=== PATIENT | male | born 1980 | race Caucasian/White ===

== ENCOUNTER 2021-01-15 19:27 | Emergency (ER) | payer OTHER ==
[~2021-01-15 19:27] MED LIST: IBUPROFEN600 MG PO
[2021-01-15] MEDS ORDERED: NAPROSYN500 MG PO (22:57)
[2021-01-15] MEDS ORDERED: AUGMENTIN 875-1 EACH PO (22:57)
[2021-01-15] MEDS ORDERED: CYCLOBENZAPRINE10 MG PO (22:57)
[2021-04-06] MEDS ORDERED: LEVOTHYROXINE125 MC1 PO (12:06)
[2021-04-06] MEDS ORDERED: DICLOFENAC GEL 1% TOP (12:07)
[2021-04-06] MEDS ORDERED: HYDROCODONE-AC1 EACH PO (12:07)
[2021-04-06] MEDS ORDERED: PROTONIX20 MG PO (12:08)
[2021-04-06] MEDS ORDERED: VITAMIN D21250 MCG PO (12:08)
[2021-04-06] MEDS ORDERED: CARAFATE1 GM PO (12:08)
[2021-04-06] MEDS ORDERED: HYDROXYZINE HCL50 MG PO (12:09)
[2021-04-06] MEDS ORDERED: ONDANSETRON ODT4 MG PO (12:10)
== END 2021-01-15 23:15 | disposition home or self-care (01) ==
LOC: ER1 19:27
DX: L03.011 Cellulitis of right finger (principal); M25.512 Pain in left shoulder; Z79.899 Other long term (current) drug therapy; F17.200 Nicotine dependence, unspecified, uncomplicated
CPT/HCPCS: 73010; 73130; 96372; 99283; J1885

== ENCOUNTER 2021-02-18 21:58 | Emergency (ER) | payer OTHER ==
[~2021-02-18 21:58] MED LIST changes: +AUGMENTIN 875-1 EACH PO; +CYCLOBENZAPRINE10 MG PO; +NAPROSYN500 MG PO
[2021-02-19] MEDS ORDERED: ENDOCET 5-3251 EACH PO (00:09)
[2021-02-19] MEDS ORDERED: BACTRIM 400-801 EACH PO (00:09)
[2021-02-19] MEDS ORDERED: LODINE CAP 300300 MG PO (00:13)
[2021-02-19] MEDS ORDERED: ZOFRAN ODT 4 MG4 MG PO (00:13)
[2021-04-06] MEDS ORDERED: LEVOTHYROXINE125 MC1 PO (12:06)
[2021-04-06] MEDS ORDERED: HYDROCODONE-AC1 EACH PO (12:07)
[2021-04-06] MEDS ORDERED: DICLOFENAC GEL 1% TOP (12:07)
[2021-04-06] MEDS ORDERED: CARAFATE1 GM PO (12:08)
[2021-04-06] MEDS ORDERED: PROTONIX20 MG PO (12:08)
[2021-04-06] MEDS ORDERED: VITAMIN D21250 MCG PO (12:08)
[2021-04-06] MEDS ORDERED: HYDROXYZINE HCL50 MG PO (12:09)
[2021-04-06] MEDS ORDERED: ONDANSETRON ODT4 MG PO (12:10)
== END 2021-02-19 00:37 | disposition home or self-care (01) ==
LOC: ER1 21:58
DX: S92.352A Displaced fracture of fifth metatarsal bone, left foot, initial encounter for closed fracture (principal); S91.302A Unspecified open wound, left foot, initial encounter; F17.210 Nicotine dependence, cigarettes, uncomplicated; W21.00XA Struck by hit or thrown ball, unspecified type, initial encounter; X50.1XXA Overexertion from prolonged static or awkward postures, initial encounter; Y92.830 Public park as the place of occurrence of the external cause
CPT/HCPCS: 73610; 73630; 99283

== ENCOUNTER → 2021-02-20 | Outpatient (CLI) | payer OTHER ==
[~2021-02-20] MED LIST changes: +BACTRIM 400-801 EACH PO; +CARAFATE1 GM PO; +DICLOFENAC GEL 1% TOP; +ENDOCET 5-3251 EACH PO; +HYDROCODONE-AC1 EACH PO; +HYDROXYZINE HCL50 MG PO; +IBU800 MG PO; +LEVOTHYROXINE125 MC1 PO; +LODINE CAP 300300 MG PO; +ONDANSETRON ODT4 MG PO; +PROTONIX20 MG PO; +VITAMIN D21250 MCG PO; +ZOFRAN ODT 4 MG4 MG PO
[2021-02-20 14:29] LABS: HEMOGLOBIN 9.9 gm/dl (14.0-17.5); RED BLOOD COUNT 3.28 M/UL (4.20-5.50); WHITE BLOOD COUNT 7.9 K/UL (4.5-11.0)
[2021-02-20 15:03] LABS: BUN/CREATININE RATIO 16 (0-10)
[2021-02-22 07:11] LABS: VITAMIN D, 25-HYDROXY 16.3 ng/mL (30.0-100.0)
[2021-02-22 09:14] LABS: THYROXINE (T4) 0.7 ug/dL (4.5-12.0)
== END ==
LOC: LAB 12:57
PROVIDERS: Nurse Practitioner Family
DX: R05 Cough (principal); Z87.891 Personal history of nicotine dependence; R53.82 Chronic fatigue, unspecified; M62.81 Muscle weakness (generalized); R60.9 Edema, unspecified
CPT/HCPCS: 71046; 80053; 80061; 81001; 82607; 83036; 84436; 84443; 84480; 85025

== ENCOUNTER 2021-02-22 11:09 | Emergency (ER) | payer OTHER ==
[~2021-02-22 11:09] MED LIST changes: -CARAFATE1 GM PO; -DICLOFENAC GEL 1% TOP; -HYDROCODONE-AC1 EACH PO; -HYDROXYZINE HCL50 MG PO; -IBU800 MG PO; -LEVOTHYROXINE125 MC1 PO; -ONDANSETRON ODT4 MG PO; -PROTONIX20 MG PO; -VITAMIN D21250 MCG PO
[2021-02-22] MEDS ORDERED: IBU800 MG PO (13:14)
[2021-04-06] MEDS ORDERED: LEVOTHYROXINE125 MC1 PO (12:06)
[2021-04-06] MEDS ORDERED: DICLOFENAC GEL 1% TOP (12:07)
[2021-04-06] MEDS ORDERED: HYDROCODONE-AC1 EACH PO (12:07)
[2021-04-06] MEDS ORDERED: VITAMIN D21250 MCG PO (12:08)
[2021-04-06] MEDS ORDERED: CARAFATE1 GM PO (12:08)
[2021-04-06] MEDS ORDERED: PROTONIX20 MG PO (12:08)
[2021-04-06] MEDS ORDERED: HYDROXYZINE HCL50 MG PO (12:09)
[2021-04-06] MEDS ORDERED: ONDANSETRON ODT4 MG PO (12:10)
== END 2021-02-22 13:36 | disposition home or self-care (01) ==
LOC: ER1 11:09
DX: S92.342A Displaced fracture of fourth metatarsal bone, left foot, initial encounter for closed fracture (principal); S92.352A Displaced fracture of fifth metatarsal bone, left foot, initial encounter for closed fracture; S92.002A Unspecified fracture of left calcaneus, initial encounter for closed fracture; S92.531A Displaced fracture of distal phalanx of right lesser toe(s), initial encounter for closed fracture; F17.210 Nicotine dependence, cigarettes, uncomplicated; W19.XXXA Unspecified fall, initial encounter; Y92.009 Unspecified place in unspecified non-institutional (private) residence as the place of occurrence of the external cause
CPT/HCPCS: 99283

== ENCOUNTER → 2021-02-23 | Outpatient (CLI) | payer OTHER ==
[~2021-02-23] MED LIST changes: +CARAFATE1 GM PO; +DICLOFENAC GEL 1% TOP; +HYDROCODONE-AC1 EACH PO; +HYDROXYZINE HCL50 MG PO; +IBU800 MG PO; +LEVOTHYROXINE125 MC1 PO; +ONDANSETRON ODT4 MG PO; +PROTONIX20 MG PO; +VITAMIN D21250 MCG PO
[2021-02-23 13:22] LABS: HEMOGLOBIN 10.5 gm/dl (14.0-17.5)
== END ==
LOC: LAB 12:06
PROVIDERS: Nurse Practitioner Family
DX: D64.9 Anemia, unspecified (principal); E03.9 Hypothyroidism, unspecified
CPT/HCPCS: 36415; 82728; 83540; 83550; 85014; 85018; 85652; 86140

== ENCOUNTER → 2021-03-05 | Outpatient (CLI) | payer OTHER | LOC: EXRD 13:18 | DX: E07.9 Disorder of thyroid, unspecified (principal); R93.89 Abnormal findings on diagnostic imaging of other specified body structures | CPT/HCPCS: 76536 ==

== ENCOUNTER → 2021-03-14 | Outpatient (CLI) | payer OTHER ==
[2021-03-14 13:16] LABS: HEMOGLOBIN 10.8 gm/dl (14.0-17.5); RED BLOOD COUNT 3.49 M/UL (4.20-5.50); WHITE BLOOD COUNT 8.7 K/UL (4.5-11.0)
[2021-03-14 13:40] LABS: BUN/CREATININE RATIO 22 (0-10)
[2021-03-15 08:14] LABS: THYROXINE (T4) 2.3 ug/dL (4.5-12.0); VITAMIN D, 25-HYDROXY 17.6 ng/mL (30.0-100.0)
== END ==
LOC: LAB 12:29
PROVIDERS: Nurse Practitioner Family
DX: E03.9 Hypothyroidism, unspecified (principal); E55.9 Vitamin D deficiency, unspecified; R53.82 Chronic fatigue, unspecified; R71.8 Other abnormality of red blood cells
CPT/HCPCS: 36415; 80053; 84436; 84443; 84480; 85025

== ENCOUNTER → 2021-03-28 | Outpatient (CLI) | payer OTHER ==
[2021-03-28 15:56] LABS: HEMOGLOBIN 11.6 gm/dl (14.0-17.5); RED BLOOD COUNT 3.75 M/UL (4.20-5.50); WHITE BLOOD COUNT 7.8 K/UL (4.5-11.0)
[2021-03-28 16:09] LABS: BUN/CREATININE RATIO 20 (0-10)
[2021-03-29 08:20] LABS: THYROXINE (T4) 3.8 ug/dL (4.5-12.0)
== END ==
LOC: LAB 14:19
PROVIDERS: Nurse Practitioner Family
DX: E03.9 Hypothyroidism, unspecified (principal); E55.9 Vitamin D deficiency, unspecified; R71.8 Other abnormality of red blood cells; R53.82 Chronic fatigue, unspecified
CPT/HCPCS: 36415; 80053; 84436; 84443; 84480; 85025

== ENCOUNTER → 2021-04-03 | Outpatient (CLI) | payer OTHER | LOC: KOH-I 09:50 | DX: S92.401A Displaced unspecified fracture of right great toe, initial encounter for closed fracture (principal); S92.421A Displaced fracture of distal phalanx of right great toe, initial encounter for closed fracture; S92.352D Displaced fracture of fifth metatarsal bone, left foot, subsequent encounter for fracture with routine healing; S92.342D Displaced fracture of fourth metatarsal bone, left foot, subsequent encounter for fracture with routine healing; M19.072 Primary osteoarthritis, left ankle and foot | CPT/HCPCS: 73630 ==

== ENCOUNTER → 2021-04-06 | Outpatient (CLI) | payer OTHER ==
[2021-04-06 12:27] LABS: RED BLOOD COUNT 3.89 M/UL (4.20-5.50); WHITE BLOOD COUNT 9.9 K/UL (4.5-11.0)
== END ==
LOC: OPSV2 10:30
PROVIDERS: Anesthesiology
DX: Z01.812 Encounter for preprocedural laboratory examination (principal)
CPT/HCPCS: 36415; 85025

== ENCOUNTER → 2021-04-24 | Outpatient (CLI) | payer OTHER ==
[2021-04-24 13:07] LABS: HEMOGLOBIN 11.8 gm/dl (14.0-17.5); RED BLOOD COUNT 3.9 M/UL (4.20-5.50); WHITE BLOOD COUNT 7.9 K/UL (4.5-11.0)
[2021-04-24 13:29] LABS: BUN/CREATININE RATIO 22 (0-10)
[2021-04-25 08:14] LABS: THYROXINE (T4) 1.5 ug/dL (4.5-12.0); VITAMIN D, 25-HYDROXY 22.1 ng/mL (30.0-100.0)
== END ==
LOC: LAB 12:16
PROVIDERS: Nurse Practitioner Family
DX: R53.82 Chronic fatigue, unspecified (principal); R79.9 Abnormal finding of blood chemistry, unspecified; E03.9 Hypothyroidism, unspecified; E55.9 Vitamin D deficiency, unspecified
CPT/HCPCS: 36415; 80053; 81001; 84436; 84443; 84480; 85025

== ENCOUNTER → 2021-05-07 | Outpatient (CLI) | payer OTHER | LOC: KOH-I 10:07 | DX: S92.342D Displaced fracture of fourth metatarsal bone, left foot, subsequent encounter for fracture with routine healing (principal); S92.352D Displaced fracture of fifth metatarsal bone, left foot, subsequent encounter for fracture with routine healing | CPT/HCPCS: 73630 ==

== ENCOUNTER 2021-05-08 15:05 | Emergency (ER) | payer OTHER | END 2021-05-08 16:27 | disposition left against medical advice (07) | LOC: ER1 15:05 | DX: Z53.21 Procedure and treatment not carried out due to patient leaving prior to being seen by health care provider (principal) ==

== ENCOUNTER → 2021-05-08 | Outpatient (CLI) | payer OTHER ==
[2021-05-08 17:46] LABS: HEMOGLOBIN 11.8 gm/dl (14.0-17.5); RED BLOOD COUNT 3.84 M/UL (4.20-5.50); WHITE BLOOD COUNT 10.5 K/UL (4.5-11.0)
[2021-05-08 19:40] LABS: BUN/CREATININE RATIO 29 (0-10)
== END ==
LOC: LAB 17:11
PROVIDERS: Nurse Practitioner Family
DX: R10.13 Epigastric pain (principal)
CPT/HCPCS: 80053; 82150; 83690; 85025

== ENCOUNTER → 2021-06-04 | Outpatient (CLI) | payer OTHER ==
[2021-06-04 15:02] LABS: HEMOGLOBIN 11.9 gm/dl (14.0-17.5); RED BLOOD COUNT 3.93 M/UL (4.20-5.50); WHITE BLOOD COUNT 11.1 K/UL (4.5-11.0)
[2021-06-04 15:24] LABS: BUN/CREATININE RATIO 17 (0-10)
[2021-06-05 08:15] LABS: THYROXINE (T4) 3.5 ug/dL (4.5-12.0)
== END ==
LOC: LAB 14:06
PROVIDERS: Nurse Practitioner Family
DX: E03.9 Hypothyroidism, unspecified (principal); E78.5 Hyperlipidemia, unspecified; E55.9 Vitamin D deficiency, unspecified
CPT/HCPCS: 36415; 80053; 80061; 81001; 84436; 84443; 84480; 85025

== ENCOUNTER → 2021-06-07 | Outpatient (CLI) | payer OTHER | LOC: KOH-I 08:52 | DX: S92.352D Displaced fracture of fifth metatarsal bone, left foot, subsequent encounter for fracture with routine healing (principal); S92.342D Displaced fracture of fourth metatarsal bone, left foot, subsequent encounter for fracture with routine healing | CPT/HCPCS: 73630 ==

== ENCOUNTER → 2021-07-04 | Outpatient (CLI) | payer OTHER | LOC: CT 09:24 | DX: R10.84 Generalized abdominal pain (principal) | CPT/HCPCS: Q9967 ==

== ENCOUNTER → 2021-07-09 | Outpatient (CLI) | payer OTHER | LOC: KOH-I 09:32 | DX: S92.352D Displaced fracture of fifth metatarsal bone, left foot, subsequent encounter for fracture with routine healing (principal); S92.342D Displaced fracture of fourth metatarsal bone, left foot, subsequent encounter for fracture with routine healing; X58.XXXD Exposure to other specified factors, subsequent encounter; R93.6 Abnormal findings on diagnostic imaging of limbs | CPT/HCPCS: 73630 ==